=== PATIENT | male | born 1965 ===

== ENCOUNTER 2019-01-16 06:17 | Day surgery (SDC) | payer MEDICARE ==
[~2019-01-16 06:17] MED LIST: GABAPENTIN100 MG PO; ISOSORBIDE MONO30 M1 PO; LEVEMIR FL100 UNIT/1 SC; LIPITOR80 MG PO; LISINOPRIL20 MG PO; NORMODYNE / TR300 MG PO; NORVASC10 MG PO; OMEPRAZOLE DR 40 MG PO; PHOSLO667 MG PO
[2019-01-16 06:45] LABS: ANION GAP 16.5 mmol/L (8-16); CARBON DIOXIDE 28.7 mmol/L (21.0-32.0); CREATININE - SERUM 9.3 mg/dL (0.6-1.3); POTASSIUM - SERUM 4.2 mmol/L (3.5-5.1)
[2019-01-16 07:08] LABS: INR 1.06 (0.85-1.17); PROTIME 13.3 SECONDS (11.6-15.0)
[2019-01-16 07:27] LABS: BASOPHILS 0.8 % (0-2); EOSINOPHILS 3.7 % (0-7); HEMATOCRIT 40.5 % (42.0-54.0); HEMOGLOBIN 13.9 g/dL (13.5-17.5); IMMATURE GRANULOCYTES 0.2 % (0-5); LYMPHOCYTES 26.1 % (15-50); MCH 32.3 pg (26.0-34.0); MCHC 34.3 g/dL (31.0-37.0); MCV 94.2 fL (80.0-100.0); MEAN PLATELET VOLUME 10.4 fL (7.4-10.4); MONOCYTES 7.8 % (2-11); NEUTROPHILS 61.4 % (40-80); PLATELET COUNT 161 10x3/uL (130-400); RDW 13.4 % (11.5-14.5)
[2019-01-16] MEDS ORDERED: BAYER CHEWABLE81 MG PO (07:30)
[2019-01-16 07:42] VITALS: BMI 27.3
[2019-01-16] MEDS ORDERED: HYDROCODON-ACE1 EAC7 PO (10:57)
--- NOTE | 2019-01-18 15:46 | OP ---
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 POSTOPERATIVE DIAGNOSES: Other mechanical complication of left brachiocephalic arteriovenous fistula, also end-stage renal disease and dependence on hemodialysis. OPERATION PERFORMED: Open revision of left arm brachiocephalic AV fistula by "turned down" on to the axillary vein. SURGEON: Otis Stein MD ANESTHESIA: General per [employer]. PREOPERATIVE NOTE: Mr. Stoddard is a 53-year-old white male patient from [place]. He has end-stage renal disease and is on home hemodialysis via a left brachiocephalic arterial venous fistula. He has developed cephalic arch occlusion with the fistula kept open by collaterals and has also had a stenosis of the cephalic vein in the upper area. This was described as 70% stenosis in the mid humeral area by Dr. Martinez, who performed percutaneous angioplasty back in October. Mr. Stoddard is brought to the operating room today with plans to revise his fistula with a turn down. Under general anesthesia in supine position, the patient was prepped and draped in a sterile manner. A transverse axillary incision was made and the axillary vein and several tributaries were isolated and controlled with Silastic loops. They were treated with topical papaverine and the wound kept moist with Ancef and gentamicin solution. The patient was given a gram of Ancef preoperatively and I asked in addition that he be given a gram of vancomycin. This was in part because the axilla had not been clipped or shaved preop. I then made an incision over the deltopectoral groove and extended it into the upper arm and exposed the proximal cephalic vein. The patient was given 2000 units of heparin and the cephalic vein then doubly ligated and divided proximally. It was flushed with heparinized saline and clamped. The midline was identified with a marking pen and the vein was then pulled through a very short subcutaneous tunnel and shortened and beveled. The axillary vein was occluded. Venotomy made and that vein flushed with heparinized saline and an end-to-side cephalic vein to side of axillary vein anastomosis then performed with running 7-0 Prolene. The suture line was hemostatic when first tested and not under excessive tension. There is a very nice geometry without any apparent stenosis of the axillary vein or cephalic vein. The wounds were irrigated with Ancef and gentamicin solution. Hemostasis was obtained during the operation primarily with electrocautery with a few small Hemoclips. The wound was infiltrated at deeper levels with 0.25% Marcaine with epinephrine and more superficially and just beneath the skin it was infiltrated with 0.25% Marcaine without epinephrine. No drain was used. The 2 wounds were closed with interrupted inverted 3-0 Vicryl for subcutaneous tissues and running OPERATIVE REPORT [id number] BECK STODDARD intracuticular 4-0 Monocryl for skin. The incisions were then closed further and sealed with Dermabond glue and dressed with Maxorb AG and then the skin was treated with an application of Cavilon and Tegaderm dressings applied. Just prior to that I did perform a shave of the axillary hair using a 10 blade scalpel. The patient was awakened and taken to the recovery room in stable condition and had a good pulse and thrill and bruit over his fistula. The fistula is not so hyperpulsatile as it was preoperatively. PLAN: I believe the patient will be able to go home today and return to see me in my office for followup next week. He will continue his usual home dialysis schedule. He is given a prescription for [place] 5/325 #14 and he can take one p.o. q.4 hours p.r.n. for pain. He will continue all of his other same home medications. TRANSINT:[id number] Voice Confirmation ID: [id number] DOCUMENT ID: [id number] OTIS STEIN MD at 1546 CC: DESTINY MARTINEZ MD [id number] DICTATION DATE: 01/16/19 1044 [facility] TENDER: 01/16/19 1506 [facility] 01/16/19 [facility] [address] [place] [address]
== END 2019-01-16 13:15 | disposition home or self-care (01) ==
LOC: D.OPS 06:17
PROVIDERS: Surgery
DX: T82.590A Other mechanical complication of surgically created arteriovenous fistula, initial encounter (principal); N18.6 End stage renal disease; Z99.2 Dependence on renal dialysis; Z01.812 Encounter for preprocedural laboratory examination